=== PATIENT | female | born 1950 | race Caucasian/White ===

== ENCOUNTER 2020-08-15 15:16 | Inpatient (IN) ==
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
[2020-08-15] MEDS ORDERED: ONDANSETRON 4 MG/2 ML VIAL IV PRN ×2 (16:42→19:04)
[2020-08-15] MEDS ORDERED: HYDROmorphone 0.5 MG/0.5 ML SYRINGE IV PRN (16:42)
[2020-08-15] MEDS: 0.9 % SODIUM CHLORIDE 1,000 ML IV SCH (17:04)
[2020-08-15] MEDS ORDERED: LORazepam 2 MG/ML VIAL IV ONE (17:20)
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
[2020-08-15] MEDS ORDERED: cefTRIAXone 1 GM VIAL IM ONE (18:17)
[2020-08-15] MEDS ORDERED: LIDOCAINE HCL/PF 100 MG/5 ML SYRINGE IV ONE (18:20)
[2020-08-15] MEDS ORDERED: fentaNYL 100 MCG/2 ML VIAL IV ONE (18:20)
[2020-08-15] MEDS ORDERED: KETAMINE 100 MG/ML ML ONE (18:20)
[2020-08-15] MEDS ORDERED: MIDAZOLAM 5 MG/5 ML VIAL ONE (18:20)
[2020-08-15] MEDS ORDERED: PHENYLEPHRINE 10 MG/ML VIAL ONE (18:20)
[2020-08-15] MEDS ORDERED: ONDANSETRON 4 MG/2 ML VIAL ONE (18:20)
[2020-08-15] MEDS ORDERED: DEXAMETHASONE 10 MG/ML VIAL ONE (18:20)
[2020-08-15] MEDS ORDERED: GLYCOPYRROLATE 0.2 MG/ML VIAL IV ONE (18:20)
[2020-08-15] MEDS ORDERED: ePHEDrine 50 MG/ML AMPUL IV ONE (18:20)
[2020-08-15] MEDS ORDERED: PROPOFOL 200 MG/20 ML VIAL IV ONE (18:20)
[2020-08-15] MEDS ORDERED: cefTRIAXone 1 GM VIAL ONE (18:36)
--- NOTE | 2020-08-15 19:02 | Brief Operative Note ---
Brief Operative Note Date of procedure: 08/15/20 Pre-op diagnosis: right ureteral stone Post-op diagnosis: same Procedure: right ureteroscopy and laser lithotripsy and stent placement Grafts/Implants: Yes (6 honduran 24 cm ureteral stent ) Anesthesia: GETA Findings: right distal radio opaque ureteral stone with hydroureter and tortuous ureter Complications: none Surgeon: Sj Hodges Specimens Removed/Pathology: other (stone for analysis, urine culture ) Condition: stable Disposition: PACU
[2020-08-15] MEDS ORDERED: HYDROcodone/APAP 5/325MG TABLET PO PRN (19:04)
[2020-08-15] MEDS ORDERED: PHENAZOPYRIDINE 200 MG TABLET PO PRN (19:04)
[2020-08-15] MEDS: PIPERACILLIN SODIUM/TAZOBACTAM 3.375 GM in DEXTROSE 5% IN WATER 50 ML IV SCH (19:30)
[2020-08-15] MEDS ORDERED: METOPROLOL TARTRATE 5 MG/5 ML VIAL IV ONE ×2 (19:42→19:52)
[2020-08-15] MEDS ORDERED: MEPERIDINE 25 MG/ML SYRINGE IV PRN (19:43)
[2020-08-15] MEDS ORDERED: LACTATED RINGERS 250 ML IV PRN (19:43)
[2020-08-15] MEDS ORDERED: BENZOCAINE/MENTHOL 1 LOZENGE PO PRN (19:43)
[2020-08-15] MEDS ORDERED: NALOXONE HCL 0.4 MG/ML VIAL IV PRN (19:43)
[2020-08-15] MEDS ORDERED: FLUMAZENIL 0.1 MG/ML ML IV PRN (19:43)
[2020-08-15] MEDS ORDERED: IPRATROPIUM/ALBUTEROL 3 ML AMPUL.NEB NEB PRN (19:43)
[2020-08-15] MEDS ORDERED: fentaNYL 100 MCG/2 ML VIAL IV PRN (19:43)
[2020-08-15] MEDS ORDERED: KETOROLAC 30 MG/ML VIAL IV PRN (19:43)
[2020-08-15] MEDS ORDERED: LABETALOL 5 MG/ML ML IV PRN (19:43)
[2020-08-15] MEDS ORDERED: METHOCARBAMOL 1,000 MG/10 ML VIAL IV PRN (19:43)
[2020-08-15] MEDS ORDERED: ACETAMINOPHEN 1,000 MG/100 ML BAG IV ONE (19:43)
[2020-08-15] MEDS ORDERED: LACTATED RINGERS 1,000 ML IV SCH (19:45)
--- NOTE | 2020-08-15 20:27 | XRay Report ---
INDICATION: stent placement TECHNIQUE: 0.4 minutes fluoroscopy and 5.56 mGy exposure utilized. A right ureteral stent was placed by Dr. Hodges. Spot films were obtained IMPRESSION: Intraoperative fluoroscopy and right ureteral stent placement Interpreted and Authenticated by: Billy Carver 08/15/20
[2020-08-15] MEDS ORDERED: VANCOMYCIN 1,500 MG in 0.9 % SODIUM CHLORIDE 500 ML IV ONE (21:00)
--- NOTE | 2020-08-15 21:11 | Event Note ---
Event Note Event Note: 69 y.o. diabetic female with obstructing ureteral UVJ stone. Patient was transferred from outside hospital and was to be admitted to Hospitalist with urology on consult. Underwent ureteroscopy, laser lithotripsy and stent placement. Did well post operatively. Is somehow admitted to urology service and her med list is not updated nor able to be reconciled in the EMR. Post op check with RN and patient is now, in the last hour, becoming hypotensive. D/W both the hospitalist financial sales professional and the housekeeper cleaning cooking and she will immediately be admitted to the unit and on the hospitalist service for likely bacteremia/sepsis.
[2020-08-15] MEDS ORDERED: 0.9 % SODIUM CHLORIDE 1,000 ML IV ONE ×2 (21:15→21:30)
[2020-08-15] MEDS ORDERED: NOREPINEPHRINE BITARTRATE 4 MG/4 ML VIAL IV ONE (21:21)
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
--- NOTE | 2020-08-15 21:47 | Operative Note ---
Operative Note Operative Note: Date of procedure: 08/15/20 Pre-op diagnosis: right ureteral stone Post-op diagnosis: same Procedure: right ureteroscopy and laser lithotripsy and stent placement Grafts/Implants: Yes (6 english 24 cm ureteral stent ) Anesthesia: GETA Findings: right distal radio opaque ureteral stone with hydroureter and tortuous ureter Complications: none Surgeon: Sj Hodges Specimens Removed/Pathology: other (stone for analysis, urine culture ) Condition: stable Disposition: PACU Informed consent was obtained and preoperative antibiotics were given. Patient had been given Zosyn at the outside hospital and she was given 1 g of ceftriaxone before the procedure. Patient was taken to the operative suite and placed on the table in supine position. Adequate anesthesia was initiated. Patient was then placed in the dorsal lithotomy position. She was prepped and draped in usual sterile fashion. We began the procedure with a 21 Sammarinese cystoscope and 30 degree lens was guided into the urethra and bladder. The bladder was examined with a 30 and 70 degree lens and was seen to be within normal limits. The urothelium and urine was without signs of obvious infection. The right ureteral orifice was identified and seemed to be edematous from the distal stone. The cystoscope was removed and the semirigid ureteroscope was entered into the urethra and bladder and with the semirigid ureteroscope we are able to utilize the wire and enter into the distal ureter. Right at the ureterovesical junction was a 6 mm ureteral calculus. Such was easily rolled back into the distal ureter. The laser fiber was employed and laser lithotripsy of the stone was undertaken and was easily and quickly fragmented into small pieces. The stone basket was entered and the larger 3 pieces were removed and sent off for analysis. The ureter was seen to be dilated and tortuous. Urine was collected for culture. The wire was seen to transverse up to the renal pelvis. The usual Salinger fashion and 6 Sammarinese 24 centimeters double-J ureteral stent was placed and seemed to coil adequately in the renal pelvis under fluoroscopy and in the bladder under direct vision. Good drainage of urine down the stent. The bladder was drained. Patient tolerated the procedure well went to recovery room in excellent condition. In recovery room, the patient was somnolent but hemodynamically stable and afebrile.
[2020-08-15] MEDS ORDERED: ALPRAZolam 0.25 MG TABLET PO PRN (21:57)
[2020-08-15] MEDS ORDERED: CETIRIZINE 10 MG TABLET PO PRN (21:57)
[2020-08-15] MEDS ORDERED: PRAVASTATIN 20 MG TABLET PO SCH (22:00)
[2020-08-15 22:11] LABS: Basophils # (Auto) 0.03 K/mcL (0.00-0.20); Basophils % (Auto) 0.3 % (0.0-2.0); Eosinophils # (Auto) 0 K/mcL (0.00-0.70); Eosinophils % (Auto) 0 % (0.0-7.0); Hematocrit 35.4 % (36.0-48.0); Hemoglobin 11.4 g/dL (12.0-15.0); Lymphocytes % (Auto) 7.6 % (15.0-49.0); Mean Cell Volume 92.4 fL (80.0-100.0); Mean Corpuscular HGB Conc 32.2 g/dL (31.0-36.0); Mean Platelet Volume 10.8 fL (7.4-10.4); Monocytes % (Auto) 3.4 % (1.0-12.0); Neutrophils % (Auto) 88.7 % (38.0-78.0); Platelet Count 233 K/mcL (140-440); RBC 3.83 M/mcL (4.00-5.20); WBC 11.8 K/mcL (4.5-11.0)
[2020-08-15 22:25] LABS: ALT/SGPT 15 U/L (<40); AST/SGOT 21 U/L (<32); Albumin 3.3 gm/dL (3.2-5.2); Albumin/Globulin Ratio 1.4 (1.0-2.3); Alkaline Phosphatase 67 U/L (39-117); Bilirubin,Direct < 0.2 mg/dL (<0.3); Bilirubin,Total 0.2 mg/dL (0.1-1.0); Blood Urea Nitrogen 14 mg/dL (8-23); Calcium 8.6 mg/dL (8.6-10.4); Carbon Dioxide 25 mmol/L (22-30); Chloride 104 mmol/L (96-108); Globulin 2.4 gm/dL (2.2-3.7); Glomerular Filtration Rate 52; Glucose 139 mg/dL (70-105); Lactate Dehydrogenase 139 U/L (135-225); Phosphorous 3.7 mg/dL (2.5-4.5); Triglycerides 163 mg/dL (<150); Uric Acid 5.8 mg/dL (2.5-8.0)
[2020-08-16] MEDS: ELECTROLYTE-R SOLUTION 1,000 ML IV SCH ×2 (00:31→11:00)
[2020-08-16] MEDS: 0.9 % SODIUM CHLORIDE 10 ML SYRINGE IV SCH ×4 (00:33→22:46)
[2020-08-16] MEDS: 0.9 % SODIUM CHLORIDE 1,000 ML IV SCH ×4 (00:47→21:33)
[2020-08-16] MEDS: PIPERACILLIN SODIUM/TAZOBACTAM 3.375 GM in DEXTROSE 5% IN WATER 50 ML IV SCH ×3 (05:45→21:33)
[2020-08-16 06:50] LABS: Basophils # (Auto) 0.01 K/mcL (0.00-0.20); Basophils % (Auto) 0.1 % (0.0-2.0); Eosinophils # (Auto) 0 K/mcL (0.00-0.70); Eosinophils % (Auto) 0 % (0.0-7.0); Hematocrit 33.2 % (36.0-48.0); Hemoglobin 10.5 g/dL (12.0-15.0); Lymphocytes # (Auto) 1.31 K/mcL (1.50-4.80); Lymphocytes % (Auto) 15.7 % (15.0-49.0); Mean Cell Volume 93.5 fL (80.0-100.0); Mean Corpuscular HGB Conc 31.6 g/dL (31.0-36.0); Mean Platelet Volume 10.9 fL (7.4-10.4); Monocytes # (Auto) 0.24 K/mcL (0.10-0.90); Monocytes % (Auto) 2.9 % (1.0-12.0); Neutrophils % (Auto) 81.3 % (38.0-78.0); Platelet Count 223 K/mcL (140-440); RBC 3.55 M/mcL (4.00-5.20); Red Cell Distribution Width 12.1 % (11.5-14.5); WBC 8.4 K/mcL (4.5-11.0)
[2020-08-16 07:43] LABS: ALT/SGPT 14 U/L (<40); AST/SGOT 20 U/L (<32); Albumin/Globulin Ratio 1.3 (1.0-2.3); Alkaline Phosphatase 63 U/L (39-117); Bilirubin,Direct < 0.2 mg/dL (<0.3); Bilirubin,Total 0.2 mg/dL (0.1-1.0); Blood Urea Nitrogen 13 mg/dL (8-23); Calcium 8.6 mg/dL (8.6-10.4); Carbon Dioxide 23 mmol/L (22-30); Chloride 115 mmol/L (96-108); Globulin 2.4 gm/dL (2.2-3.7); Glomerular Filtration Rate 66; Glucose 128 mg/dL (70-105); Lactate Dehydrogenase 125 U/L (135-225); Phosphorous 4.3 mg/dL (2.5-4.5); Triglycerides 83 mg/dL (<150); Uric Acid 4.7 mg/dL (2.5-8.0)
[2020-08-16] MEDS ORDERED: FAMOTIDINE 20 MG TABLET PO SCH (09:00)
[2020-08-16] MEDS ORDERED: LIRAGLUTIDE SUB-Q SCH (09:00)
[2020-08-16] MEDS ORDERED: INSULIN GLARGINE, HUMAN 1 UNIT/0.01 ML SQ SCH ×3 (09:00→21:00)
[2020-08-16] MEDS ORDERED: busPIRone 5 MG TABLET PO SCH (09:00)
[2020-08-16] MEDS ORDERED: CLOPIDOGREL 75 MG TABLET PO SCH (09:00)
[2020-08-16] MEDS ORDERED: PARoxetine 20 MG TABLET PO SCH (09:00)
[2020-08-16] MEDS ORDERED: ASPIRIN 81 MG TAB.CHEW PO SCH (09:00)
[2020-08-16] MEDS ORDERED: VANCOMYCIN PER PHARMACY IV SCH ×2 (10:15→13:33)
[2020-08-16] MEDS ORDERED: MAGNESIUM SULFATE 2 GM/50 ML BAG IV ONE (11:00)
[2020-08-16] MEDS ORDERED: VANCOMYCIN 1,000 MG in 0.9 % SODIUM CHLORIDE 250 ML IV SCH (11:00)
[2020-08-16] MEDS ORDERED: INSULIN LISPRO 1 UNIT/0.01 ML UNIT SQ SCH (11:30)
--- NOTE | 2020-08-16 12:08 | Internal Med Progress Note ---
SUBJECTIVE Subjective Patient information: Note initiated : 08/16/20 at 12:08 pm Service Date, if different from initiated Date: [] Patient: Chinyere Parkinson 69 y/o F admitted on 08/15/20 for Flank Pain . Chief Complaint: Ms. Parkinson is a 69-year-old with a history of CVA 3 weeks ago/anxiety disorder /DM type II/HTN who was transferred from [place] with symptoms of acute onset right lower quadrant pain secondary to right UVJ stone/obstructive uropathy. Due to unavailability of urology at [facility] the patient was transferred to [facility] and was evaluated by urology Dr. Hodges. She underwent ureteroscopy/laser lithotripsy and stenting this evening. Postoperatively patient became febrile at 102 along with systolics dropping to 70s indicating rapidly developing sepsis with circulatory collapse. Subsequently hospitalist service was consulted for management of shock likely from genitourinary source. Patient was seen in the immediate postoperative phase. Appears lethargic. Stat 2 L of boluses ordered. IV line secured. Stat lactate/CBC/IP/UA/blood cultures drawn. Patient emergently transferred to ICU and started on vasopressors/Zosyn/vancomycin. Patient is able to answer some of the questions. She says she has had a rough few weeks with a recent CVA for which she was admitted to centers of 3 weeks ago and currently on Plavix. She also has been going through a divorce and has been under a lot of stress. She denies associated fever, bloody urine, diarrhea, dysuria, chest pain 08/16-patient clinically improved. Map at goal. White count stable. Afebrile. Transition to medical floor. Continue antibiotic coverage. No endorgan dysfunction. Mentation improved, white count down to 8.4. Cultures negative so far. Sodium 146. DC IV fluids. Magnesium 1.5 on replacement. Constitutional Vitals: Vital Signs Temp Pulse Resp BP Pulse Ox 98.4 F 75 16 140/66 98 08/16/20 12:01 08/16/20 12:08/16/20 12:08/16/20 12:08/16/20 12:01 Period Temp Pulse Resp BP Sys/Teran Pulse Ox Last 24 Hr 97.7 F-99.4 F 75-124 11-23 78-159/44-108 87-100 Intake and Output 08/15/20 08/16/20 08/16/20 21:59 05:59 13:59 Intake Total 1572014 Output Total 20 1525 Balance 3227 027 7216 Weight 70.987 kg Alert oriented no anxiety Nonlabored breathing Nondistended abdomen No telemetry events Intake & Output: Intake & Output 08/15/20 08/16/20 08/16/20 21:59 05:59 13:59 Intake Total 1572014 Output Total 20 1525 Balance 1070 949 6061 Weight 70.987 kg Intake: IV 72 1814 2049 Sodium Chloride 0.9% 1,000 ml @ 72 1265 2000 Wide Open IV BOLUS ONE Rx#: [id number] Zosyn 3.375 gm In Dextrose 5% 50 50 in Water 50 ml @ 100 mls/hr IV Q8H [facility] Rx#:[id number] Vancomycin 1,500 mg In Sodium 500 Chloride 0.9% 500 ml @ 333.3 mls/hr IV ONCE ONE Rx#: [id number] Oral 200 IV - Manual Only 1500 Output: Urine Catheter Amount 1525 Estimated Blood Loss 20 Other: Urine Appearance Clear Clear Hematuria Hematuria Uretheral (Zavala) Hematuria Hematuria Urine Color Blood Tinged Blood Tinged Uretheral (Zavala) Pale Pale Urine Odor Normal # Voids 1 OBJ DATA Labs CBC & Chem 7: 08/16/20 05:42 08/16/20 05:42 Labs: Abnormal Lab Results 08/16/20 08/16/20 08/15/20 05:42 05:42 21:24 WBC RBC 3.55 L Hgb 10.5 L Hct 33.2 L MPV 10.9 H Neut % (Auto) 81.3 H Lymph % (Auto) Lymph # (Auto) 1.31 L Absolute Neutrophils Sodium 146 H Chloride 115 H Glucose 128 H 139 H Magnesium 1.5 L 1.5 L Lactate Dehydrogenase 125 L Total Protein 5.4 L 5.7 L Albumin 3.0 L Triglycerides 163 H 08/15/20 21:24 WBC 11.8 H RBC 3.83 L Hgb 11.4 L Hct 35.4 L MPV 10.8 H Neut % (Auto) 88.7 H Lymph % (Auto) 7.6 L Lymph # (Auto) 0.90 L Absolute Neutrophils 10.50 H Sodium Chloride Glucose Magnesium Lactate Dehydrogenase Total Protein Albumin Triglycerides Meds: Medications Hydrocodone Bitart/Acetaminophen ([place] 5/325mg) 0 tab PO Q4HP PRN; Protocol PRN Reason: Per Pain Protocol Alprazolam (Xanax) 0.25 - 0.5 mg PO HSP PRN PRN Reason: anxiety Aspirin (Aspirin) 81 mg PO QDAY [facility] Last Admin: 08/16/20 11:27 Dose: 81 mg Documented by: Buspirone HCl (Buspar) 10 mg PO BID [facility] Last Admin: 08/16/20 11:28 Dose: 10 mg Documented by: Cetirizine HCl (Zyrtec) 10 mg PO DAILYP PRN PRN Reason: allergy symptoms Last Admin: 08/16/20 11:28 Dose: 10 mg Documented by: Clopidogrel Bisulfate (Plavix) 75 mg PO QDAY [facility] Last Admin: 08/16/20 11:28 Dose: 75 mg Documented by: Diagnostic Test (Pha) (Accu-Chek) 1 each FS ACHS [facility] Last Admin: 08/16/20 11:26 Dose: 1 each Documented by: Famotidine (Pepcid) 40 mg PO QDAY [facility] Last Admin: 08/16/20 11:29 Dose: 40 mg Documented by: Hydromorphone HCl (Dilaudid) 0.5 mg IV Q15MIN PRN; Protocol PRN Reason: Per Pain Protocol Last Admin: 08/15/20 17:04 Dose: 0.5 mg Documented by: Sodium Chloride (Sodium Chloride 0.9%) 1,000 mls @ 150 mls/hr IV .Q6H40M [facility] Last Admin: 08/16/20 05:44 Dose: 150 mls/hr Documented by: Piperacillin Sod/Tazobactam (Sod 3.375 gm/ Dextrose) 50 mls @ 100 mls/hr IV Q8H [facility]; Protocol Last Infusion: 08/16/20 07:04 Dose: Infused Documented by: Parenteral Electrolytes (Normosol-R) 1,000 mls @ 100 mls/hr IV .Q10H [facility] Last Admin: 08/16/20 11:00 Dose: Not Given Documented by: Magnesium Sulfate (Magnesium Sulfate) 2 gm in 50 mls @ 25 mls/hr IV ONCE ONE Stop: 08/16/20 12:59 Last Admin: 08/16/20 11:03 Dose: 25 mls/hr Documented by: Vancomycin HCl 1,000 mg/ (Sodium Chloride) 250 mls @ 250 mls/hr IV Q12H [facility] Last Admin: 08/16/20 11:03 Dose: 250 mls/hr Documented by: Insulin Glargine (Lantus) 86 unit SQ HS [facility] Insulin Human Lispro (Humalog) 0 unit SQ ACHS [facility]; Protocol Last Admin: 08/16/20 11:55 Dose: Not Given Documented by: Ondansetron HCl (Zofran) 4 mg IV Q4-6HP PRN PRN Reason: Nausea And Vomiting Last Admin: 08/15/20 17:04 Dose: 4 mg Documented by: Ondansetron HCl (Zofran) 4 mg IV Q6HP PRN; Protocol PRN Reason: Nausea And Vomiting Paroxetine HCl (Paxil) 30 mg PO QDAY [facility] Last Admin: 08/16/20 11:27 Dose: 30 mg Documented by: Liraglutide [Victoza (] 1.8mg/Dose) 1 dose SUB-Q DAILY [facility] Last Admin: 08/16/20 11:09 Dose: Not Given Documented by: Phenazopyridine HCl (Pyridium) 200 mg PO TIDP PRN PRN Reason: PAINFUL URINATION Simvastatin (Zocor) 10 mg PO HS [facility] Sodium Chloride (Saline Flush) 5 ml IV Q8 [facility] Last Admin: 08/16/20 07:03 Dose: Not Given Documented by: Vancomycin HCl (Vancomycin Per Pharmacy) 1 order IV UD NATE A/P Narrative A/P Narrative: * Septic shock likely source. Clinically resolved. Now map at goal. Off pressors. Improved endorgan dysfunction. White count downtrending. Transfer to medical floor continue antibiotic coverage * Obstructive uropathy-status post laser lithotripsy/cystoscopy/stenting procedure by urology. Postop care per urology * Hypernatremia at 146 secondary to crystalloids. Start free water replacement * Hypoxic respiratory failure on 2 L oxygen. Likely secondary to hypoventilation from procedural sedation. Continue weaning oxygen as tolerated * DM type II continue basal prandial insulin * Recent ischemic CVA with right sided weakness. Continue Plavix/statin * History of hypertension hold antihypertensives in light of shock * Anxiety disorder continue benzodiazepine, restart home medication once patient stable * Full code * Prophylaxis Heparin Plan * Transfer to medical floor * Continue antibiotics * Discontinue crystalloids and start free water replacement * Restart home medications for pre-existing medical conditions * PT OT/nutrition support Critical care time spent in excess of 35 minutes on management of septic shock and stabilization of hemodynamics Time Spent With Patient Time: Total time spent is greater than 50% in coordination of care (as documented) at patient's floor/unit and/or counseling patient: QUALITY Stroke Onset of Symptoms Date: 07/17/20 Onset of Symptoms Time: 20:00 Symptom Onset Unknown: No VTE Deep Vein Thrombosis/Pulmonary Embolism Present on Admission: No
[2020-08-16] MEDS ORDERED: HYDROcodone/APAP 5/325MG TABLET PO PRN (13:33)
[2020-08-16] MEDS ORDERED: PHENAZOPYRIDINE 200 MG TABLET PO PRN (13:33)
[2020-08-16] MEDS ORDERED: CETIRIZINE 10 MG TABLET PO PRN (13:33)
[2020-08-16] MEDS ORDERED: ONDANSETRON 4 MG/2 ML VIAL IV PRN ×2 (13:33)
[2020-08-16] MEDS: INSULIN LISPRO 1 UNIT/0.01 ML UNIT SQ SCH ×2 (17:40→21:35)
[2020-08-16] MEDS ORDERED: ALPRAZolam 0.25 MG TABLET PO PRN (21:00)
[2020-08-16] MEDS ORDERED: SIMVASTATIN 10 MG TABLET PO SCH ×2 (21:00)
[2020-08-16] MEDS ORDERED: TRAVOPROST OPHTH DROPS BOTTLE 2.5ML OU SCH ×2 (21:00)
[2020-08-16] MEDS: VANCOMYCIN 1,000 MG in 0.9 % SODIUM CHLORIDE 250 ML IV SCH (21:33)
[2020-08-16] MEDS: busPIRone 5 MG TABLET PO SCH (21:35)
[2020-08-17] MEDS: 0.9 % SODIUM CHLORIDE 10 ML SYRINGE IV SCH (04:53)
[2020-08-17] MEDS: PIPERACILLIN SODIUM/TAZOBACTAM 3.375 GM in DEXTROSE 5% IN WATER 50 ML IV SCH (05:08)
[2020-08-17] MEDS: INSULIN LISPRO 1 UNIT/0.01 ML UNIT SQ SCH ×2 (07:07→11:22)
[2020-08-17] MEDS: busPIRone 5 MG TABLET PO SCH (08:22)
[2020-08-17] MEDS ORDERED: FAMOTIDINE 20 MG TABLET PO SCH (09:00)
[2020-08-17] MEDS ORDERED: ASPIRIN 81 MG TAB.CHEW PO SCH (09:00)
[2020-08-17] MEDS ORDERED: PARoxetine 20 MG TABLET PO SCH (09:00)
[2020-08-17] MEDS ORDERED: PATIENTS OWN MEDICATION 1 DOSE MISCELL SUB-Q SCH (09:00)
[2020-08-17] MEDS ORDERED: CLOPIDOGREL 75 MG TABLET PO SCH (09:00)
[2020-08-17] MEDS: VANCOMYCIN 1,000 MG in 0.9 % SODIUM CHLORIDE 250 ML IV SCH (10:30)
--- NOTE | 2020-08-17 12:22 | Discharge Summary ---
Discharge Provider Provider Patient information: Note initiated : 08/17/20 at 12:19 pm Service Date, if different from initiated Date: [] Patient: Chinyere Parkinson 69 y/o F admitted on 08/15/20 for Flank Pain . Discharge diagnosis * Septic shock likely source. Clinically resolved. Hemodynamic stable. Improved endorgan dysfunction. Discharging home. Continue additional 5 days oral antibiotics. * Obstructive uropathy-status post laser lithotripsy/cystoscopy/stenting procedure by urology. Follow-up with urology in 1 week * Hypernatremia at 146 secondary to crystalloids. Resolved with free water replacement. * Hypoxic respiratory failure on 2 L oxygen. Resolved now on room air * DM type II well-controlled on basal prandial insulin * Recent ischemic CVA with right sided weakness. Managed on home dose Plavix/statin * History of hypertension resume home antihypertensives * Anxiety disorder continue benzodiazepine, continue home medications Brief hospital course Ms. Parkinson is a 69-year-old with a history of CVA 3 weeks ago/anxiety disorder/DM type II/HTN who was transferred from [place] with symptoms of acute onset right lower quadrant pain secondary to right UVJ stone/obstructive uropathy. Due to unavailability of urology at [facility] the patient was transferred to [facility] and was evaluated by urology Dr. Hodges. She underwent ureteroscopy/laser lithotripsy and stenting this evening. Postoperatively patient became febrile at 102 along with systolics dropping to 70s indicating rapidly developing sepsis with circulatory collapse. Subsequently hospitalist service was consulted for management of shock likely from genitourinary source. Patient was seen in the immediate postoperative phase. Appears lethargic. Stat 2 L of boluses ordered. IV line secured. Stat lactate/CBC/IP/UA/blood cultures drawn. Patient emergently transferred to ICU and started on vasopressors/Zosyn/vancomycin. Patient is able to answer some of the questions. She says she has had a rough few weeks with a recent CVA for which she was admitted to centers of 3 weeks ago and currently on Plavix. She also has been going through a divorce and has been under a lot of stress. She denies associated fever, bloody urine, diarrhea, dysuria, chest pain 08/16-patient clinically improved. Map at goal. White count stable. Afebrile. Transition to medical floor. Continue antibiotic coverage. No endorgan dysfunction. Mentation improved, white count down to 8.4. Cultures negative so far. Sodium 146. DC IV fluids. Magnesium 1.5 on replacement. 08/17- patient discharging home on additional 5 days oral antibiotic. Recommended follow-up with urology in 7 days. Discharge instructions below Date of admission: 08/15/20 21:15 Discharge date: 08/17/20 Primary care physician: Miranda Mccain Consults: 08/15/20 17:10 Consult to Physician [CONS] Stat Comment: Consulting Provider: Sj Hodges Reason For Exam: Physician to Consult Discharge Meds Discharge Medications Home Medications hjrbjpuu-tqn-vlbn-FA-lutein 1 each PO QAM 12/11/16 [History Confirmed 08/02/20 Last Taken 12/11/16] hydrochlorothiazide 25 mg tablet 25 mg PO QAM #90 tab 10/01/19 [Rx Confirmed 08/15/20 Last Taken 08/14/20 09:00] liraglutide 0.6 mg/0.1 mL (18 mg/3 mL) subcutaneous pen injector See Rx Instructions .ROUTE .COMPLEX #9 milliliter 11/02/19 [Rx Confirmed 08/15/20 Last Taken 08/14/20 09:00] lisinopril 10 mg tablet 10 mg PO QDAY #90 tab 12/29/19 [Rx Confirmed 08/15/20 Last Taken 08/14/20 09:00] blood sugar diagnostic See Rx Instructions .ROUTE .COMPLEX #100 each 03/25/20 [Rx Confirmed 08/15/20 Last Taken Unknown] insulin aspart (niacinamide) See Rx Instructions .ROUTE .COMPLEX #15 ml 04/27/20 [Rx Confirmed 08/02/20 Last Taken Unknown] pen needle, diabetic 32 gauge x 5/32" See Rx Instructions .ROUTE .COMPLEX #100 each 04/27/20 [Rx Confirmed 08/02/20 Last Taken Unknown] famotidine 40 mg tablet 40 mg PO QDAY #90 tab 05/30/20 [Rx Confirmed 08/15/20 Last Taken Unknown] ondansetron 4 mg disintegrating tablet 4 mg PO Q8H PRN #10 tab 06/08/20 [Rx Confirmed 08/02/20 Last Taken Unknown] amino-max 1 tab PO QDAY 07/06/20 [History Confirmed 08/02/20 Last Taken Unknown] ascorbate calcium (vitamin C) 500 mg tablet 500 mg PO QDAY 07/06/20 [History Confirmed 08/02/20 Last Taken Unknown] aspirin 81 mg tablet,delayed release 81 mg PO QDAY 07/06/20 [History Confirmed 08/15/20 Last Taken 08/14/20 09:00] cetirizine 10 mg tablet 10 mg PO QDAY PRN tab 07/06/20 [History Confirmed 08/15/20 Last Taken Unknown] cranberry extract 650 mg capsule 650 mg PO QDAY cap 07/06/20 [History Confirmed 08/02/20 Last Taken Unknown] insulin glargine U-300 conc 300 unit/mL (1.5 mL) subcutaneous pen 86 unit SUB-Q QDAY #9 ml 07/06/20 [Rx Confirmed 08/15/20 Last Taken 08/14/20 09:00] pravastatin 20 mg tablet See Rx Instructions .ROUTE .COMPLEX #45 tab 07/06/20 [Rx Confirmed 08/15/20 Last Taken 08/14/20 21:00] vitamin E (dl, acetate) 400 unit capsule 400 unit PO QDAY cap 07/06/20 [History Confirmed 08/02/20 Last Taken Unknown] zinc 50 mg tablet 25 mg PO QDAY tab 07/06/20 [History Confirmed 08/02/20 Last Taken Unknown] acyclovir 400 mg tablet 400 mg PO BID #180 tab 07/11/20 [Rx Confirmed 08/02/20 Last Taken Unknown] albuterol sulfate 90 mcg/actuation aerosol inhaler 2 puff INHALATION QID PRN #18 g 07/11/20 [Rx Confirmed 08/02/20 Last Taken Unknown] buspirone 10 mg tablet 10 mg PO BID #60 tab 07/18/20 [Rx Confirmed 08/15/20 Last Taken 08/14/20 21:00] clopidogrel 75 mg tablet 75 mg PO QDAY #180 tab 07/18/20 [Rx Confirmed 08/15/20 Last Taken Unknown] paroxetine HCl 20 mg tablet 30 mg PO QDAY #145 tab 07/18/20 [Rx Confirmed 08/15/20 Last Taken 08/14/20 09:00] cholecalciferol (vitamin D3) 1,250 mcg (50,000 unit) capsule 50,000 unit PO QWEEK #12 cap 07/22/20 [Rx Confirmed 08/02/20 Last Taken Unknown] nitrofurantoin monohydrate/macrocrystals 100 mg capsule 100 mg PO BID #20 cap 08/02/20 [Rx Confirmed 08/02/20 Last Taken Unknown] alprazolam 0.25 mg tablet 0.25 - 0.5 mg PO QHS PRN #60 tab 08/08/20 [Rx Confirmed 08/15/20 Last Taken Unknown] travoprost 1 drp OPHTHALMIC (EYE) HS 08/16/20 [History Confirmed 08/16/20 Last Taken Unknown] cefdinir 300 mg PO BID #10 cap 08/17/20 [Rx Last Taken Unknown] COURSE Hospital Course Hospital course: . Discharge diagnosis: . Time Spent with Patient Time attestation: Total time spent providing and/or coordinating discharge services: EXAM Constitutional Vitals: Temp Pulse Resp BP Pulse Ox 98.4 F 95 H 18 135/70 92 08/17/20 07:00 08/17/20 07:00 08/17/20 07:00 08/17/20 07:00 08/17/20 07:00 Discharge Data Data Completed and Pending Labs on day of discharge: Labs from last 24 hours 08/17/20 07:59 Vancomycin Trough 14.2 Preliminary micro results at discharge 08/15/20 21:25 Blood Culture - Preliminary Blood 08/15/20 21:24 Blood Culture - Preliminary Blood Discharge Plan Patient/Caregiver Discharge Instructions Activity: increase activity as tolerated Diet: Consistent Carbohydrate Instructions: Kidney Stones (ED) Activity Restrictions/Additional Instructions: Follow-up with urology in 7 days. Continue antibiotic coverage physician 5 days Return to ER if worsening abdominal pain fever chills Prescriptions: New cefdinir 300 MG capsule 300 mg PO BID Qty: 10 RF: 0 Continued insulin aspart (niacinamide) [Fiasp FlexTouch U-100 Insulin] 100 unit/mL (3 mL) insulin pen RF: 0 famotidine [Pepcid] 40 mg tablet 40 mg PO QDAY Qty: 90 RF: 3 aspirin [Adult Low Dose Aspirin] 81 mg tablet,delayed release (DR/EC) 81 mg PO QDAY RF: 0 cetirizine 10 mg tablet 10 mg PO QDAY PRN (Reason: allergy symptoms) RF: 0 vitamin E (dl, acetate) 400 unit capsule 400 unit PO QDAY RF: 0 cranberry extract 650 mg capsule 650 mg PO QDAY RF: 0 ascorbate calcium (vitamin C) 500 mg tablet 500 mg PO QDAY RF: 0 zinc 50 mg tablet 25 mg PO QDAY RF: 0 amino-max 1 tab PO QDAY RF: 0 pravastatin 20 mg tablet See Rx Instructions .ROUTE .COMPLEX Qty: 45 RF: 2 Toujeo SoloStar U-300 Insulin 300 unit/mL (1.5 mL) insulin pen 86 unit SUB-Q QDAY Qty: 9 RF: 6 buspirone 10 mg tablet 10 mg PO BID Qty: 60 RF: 3 paroxetine HCl [Paxil] 20 mg tablet 30 mg PO QDAY Qty: 145 RF: 0 clopidogrel 75 mg tablet 75 mg PO QDAY Qty: 180 RF: 2 nitrofurantoin monohyd/m-cryst [Macrobid] 100 mg capsule 100 mg PO BID Qty: 20 RF: 0 insulin glargine U-300 conc [Toujeo SoloStar U-300 Insulin] 300 unit/mL (1.5 mL) insulin pen RF: 0 hydrochlorothiazide 25 mg tablet 25 mg PO QAM Qty: 90 RF: 3 liraglutide [Victoza 3-Gio] 0.6 mg/0.1 mL (18 mg/3 mL) pen injector See Rx Instructions .ROUTE .COMPLEX Qty: 9 RF: 6 lisinopril 10 mg tablet 10 mg PO QDAY Qty: 90 RF: 3 blood sugar diagnostic [FreeStyle Lite Strips] Strip See Rx Instructions .ROUTE .COMPLEX Qty: 100 RF: 5 pen needle, diabetic [BD Ultra-Fine Elsi Pen Needle] 32 gauge x 5/32" needle See Rx Instructions .ROUTE .COMPLEX Qty: 100 RF: 6 insulin aspart (niacinamide) [Fiasp FlexTouch U-100 Insulin] 100 unit/mL (3 mL) insulin pen See Rx Instructions .ROUTE .COMPLEX Qty: 15 RF: 3 acyclovir 400 mg tablet 400 mg PO BID Qty: 180 RF: 1 albuterol sulfate [ProAir HFA] 90 mcg/actuation HFA aerosol inhaler 2 puff INHALATION QID PRN (Reason: shortness of breath or wheezing) Qty: 18 RF: 3 cholecalciferol (vitamin D3) 1,250 mcg (50,000 unit) capsule 50,000 unit PO QWEEK Qty: 12 RF: 0 alprazolam 0.25 mg tablet 0.25 - 0.5 mg PO QHS PRN (Reason: anxiety) Qty: 60 RF: 0 ondansetron 4 mg tablet,disintegrating 4 mg PO Q8H PRN (Reason: nausea and vomiting) Qty: 10 RF: 0 yubklcuf-amm-itgk-FA-lutein 1 EACH tablet 1 each PO QAM RF: 0 travoprost 0.004 % Drops 1 drp OPHTHALMIC (EYE) HS RF: 0 Follow Up Plan Follow up with: Sj Hodges MD [Physician] - Miranda Mccain ARNP [Primary Care Provider] - Patient Disposition: Home, Self-Care Prognosis: Fair Rehab Potential: Fair I certify that the patient requires SNF services: No Overall status at discharge: patient is progressing back to baseline Discharge Orders: Discharge Order (Routine); Ordered 08/17/20 Ordered By: Rebel NIEVES VTE Deep Vein Thrombosis/Pulmonary Embolism Present on Admission: No
--- NOTE | 2020-08-18 12:48 | Surgical Pathology Report ---
Histology Microscopic Diagnosis Specimen A- MINERAL MATERIAL, KIDNEY, EXTRACTION: -- CALCULI (GROSS DIAGNOSIS), SUBMITTED FOR CHEMICAL ANALYSIS. (ACP:sln) Clinical History Right flank pain. Gross Description Received without fixative labeled with the patient information and designated as kidney stones, are three black-brown stone fragments 0.3 cm each. No sections taken, gross only. The specimen will be submitted for chemical analysis. (KGW:sln) Electronically Signed Tristen Vela MD, FCAP Electronically Signed 08/18/2020 12:47 PM
[2020-08-25 11:37] LABS: Calculus Weight 0.019 g; Specimen Source NOT GIVEN
== END 2020-08-17 14:30 | disposition home or self-care (01) | DRG 659 ==
LOC: ED 15:16 → SUR 17:34 → MEDSUR 20:05 → ICU 21:15 → MEDSUR 08-16 15:50
PROVIDERS: ADMIT Internal Medicine; ATTEND Internal Medicine

== ENCOUNTER 2025-02-18 18:51 | Inpatient (IN) ==
[2025-02-18] MEDS: ACETAMINOPHEN 325 MG TABLET PO ONE (19:31)
[2025-02-18] MEDS: DIAZEPAM 10 MG/2 ML SYRINGE IV ONE (20:02)
[2025-02-18 20:07] LABS: Basophils # (Auto) 0.02 K/mcL (0.00-0.30); Basophils % (Auto) 0.1 % (0.0-2.0); Eosinophils # (Auto) 0.06 K/mcL (0.00-0.70); Eosinophils % (Auto) 0.4 % (0.0-7.0); Hematocrit 37.3 % (34.1-44.9); Hemoglobin 12.1 g/dL (11.2-15.7); Lymphocytes # (Auto) 2.65 K/mcL (1.50-4.80); Lymphocytes % (Auto) 19.8 % (15.5-49.0); Mean Cell Volume 89.9 fL (80.0-100.0); Mean Corpuscular HGB Conc 32.4 g/dL (31.0-36.0); Neutrophils % (Auto) 73.5 % (38.0-78.0); Platelet Count 212 K/mcL (140-440); RBC 4.15 M/mcL (3.59-5.38); Red Cell Distribution Width 12.6 % (11.5-14.5); WBC 13.4 K/mcL (4.5-11.0)
[2025-02-18 20:14] LABS: Prothrombin Time 13.5 sec (11.9-14.5)
[2025-02-18 20:19] LABS: ALT/SGPT 13 U/L (<40); AST/SGOT 18 U/L (<32); Albumin 3.8 gm/dL (3.2-5.2); Albumin/Globulin Ratio 1.4 (1.0-2.3); Alkaline Phosphatase 62 U/L (39-117); Bilirubin,Total 0.4 mg/dL (0.1-1.0); Blood Urea Nitrogen 22 mg/dL (8-23); Calcium 9.9 mg/dL (8.6-10.4); Carbon Dioxide 23 mmol/L (22-30); Chloride 104 mmol/L (96-108); Globulin 2.7 gm/dL (2.2-3.7); Glomerular Filtration Rate 56; Glucose 181 mg/dL (70-105); Potassium 4.5 mmol/L (3.3-5.1); Sodium 140 mmol/L (133-145)
[2025-02-18] MEDS ORDERED: OLANZapine 5 MG TABLET PO PRN (21:20)
[2025-02-18] MEDS ORDERED: POTASSIUM CHLORIDE 20 MEQ TABLET PO PRN ×2 (21:20)
[2025-02-18] MEDS ORDERED: ONDANSETRON 4 MG/2 ML VIAL IV PRN (21:20)
[2025-02-18] MEDS ORDERED: POTASSIUM CHLORIDE 40 MEQ in DEXTROSE 5% IN WATER 500 ML IV PRN (21:20)
[2025-02-18] MEDS ORDERED: POLYETHYLENE GLYCOL 3350 17 GM PACKET PO PRN (21:20)
[2025-02-18] MEDS ORDERED: DEXTROSE 31 GM ORAL.SUSP PO PRN (21:20)
[2025-02-18] MEDS ORDERED: MAGNESIUM SULFATE 2 GM/50 ML BAG IV PRN (21:20)
[2025-02-18] MEDS ORDERED: DEXTROSE 50% 50 ML VIAL IV PRN (21:20)
[2025-02-18] MEDS ORDERED: METOCLOPRAMIDE 10 MG/2 ML VIAL IV PRN (21:20)
[2025-02-18] MEDS ORDERED: SENNOSIDES 1 TABLET PO PRN (21:20)
[2025-02-18] MEDS ORDERED: ACETAMINOPHEN 325 MG TABLET PO PRN (21:20)
[2025-02-18] MEDS ORDERED: IPRATROPIUM/ALBUTEROL 3 ML AMPUL.NEB NEB PRN (21:20)
[2025-02-18] MEDS: morphine 4 MG/ML VIAL IV PRN (21:24)
[2025-02-18] MEDS: 0.9 % SODIUM CHLORIDE 1,000 ML IV SCH (21:27)
[2025-02-18] MEDS: morphine 4 MG/ML VIAL ONE (22:09)
[2025-02-18] MEDS: 0.9 % SODIUM CHLORIDE 10 ML SYRINGE IV SCH (22:10)
[2025-02-18] MEDS: DOCUSATE SODIUM 100 MG CAPSULE PO SCH (22:39)
[2025-02-18] MEDS: INSULIN LISPRO 1 UNIT/0.01 ML UNIT SQ SCH (22:39)
[2025-02-18] MEDS: ACETAMINOPHEN 650 MG/65 ML BAG IV SCH (22:58)
[2025-02-18] MEDS: INSULIN LISPRO 1 UNIT/0.01 ML UNIT SQ ONE (22:59)
[2025-02-18] MEDS: ACETAMINOPHEN 1,000 MG/100 ML BAG IV ONE (23:00)
[2025-02-19] MEDS: ACETAMINOPHEN 1,000 MG/100 ML BAG IV ONE (05:13)
[2025-02-19] MEDS: morphine 4 MG/ML VIAL IV PRN (05:31)
[2025-02-19] MEDS: morphine 4 MG/ML VIAL ONE (05:43)
[2025-02-19 06:31] LABS: Basophils # (Auto) 0.03 K/mcL (0.00-0.30); Basophils % (Auto) 0.3 % (0.0-2.0); Eosinophils % (Auto) 1.9 % (0.0-7.0); Hematocrit 35.2 % (34.1-44.9); Hemoglobin 11.2 g/dL (11.2-15.7); Lymphocytes # (Auto) 2.54 K/mcL (1.50-4.80); Lymphocytes % (Auto) 23.8 % (15.5-49.0); Mean Cell Volume 92.4 fL (80.0-100.0); Mean Corpuscular HGB Conc 31.8 g/dL (31.0-36.0); Mean Platelet Volume 11.1 fL (8.8-12.5); Monocytes # (Auto) 1.01 K/mcL (0.10-0.90); Monocytes % (Auto) 9.4 % (1.0-12.0); Neutrophils % (Auto) 64.5 % (38.0-78.0); Platelet Count 161 K/mcL (140-440); Prothrombin Time 13.5 sec (11.9-14.5); RBC 3.81 M/mcL (3.59-5.38); Red Cell Distribution Width 12.7 % (11.5-14.5); WBC 10.7 K/mcL (4.5-11.0)
[2025-02-19 06:51] LABS: ALT/SGPT 16 U/L (<40); AST/SGOT 26 U/L (<32); Albumin 3.4 gm/dL (3.2-5.2); Albumin/Globulin Ratio 1.4 (1.0-2.3); Alkaline Phosphatase 61 U/L (39-117); Bilirubin,Direct < 0.2 mg/dL (0-0.3); Bilirubin,Total 0.3 mg/dL (0.1-1.0); Blood Urea Nitrogen 21 mg/dL (8-23); Calcium 9.2 mg/dL (8.6-10.4); Carbon Dioxide 24 mmol/L (22-30); Chloride 107 mmol/L (96-108); Globulin 2.5 gm/dL (2.2-3.7); Glomerular Filtration Rate 64; Glucose 164 mg/dL (70-105); Lactate Dehydrogenase 145 U/L (135-225); Phosphorous 3.3 mg/dL (2.5-4.5); Sodium 141 mmol/L (133-145); Triglycerides 108 mg/dL (<150)
[2025-02-19] MEDS ORDERED: PROPOFOL 200 MG/20 ML VIAL IV ONE (13:25)
[2025-02-19] MEDS ORDERED: KETAMINE 50 MG/ML ML ONE (13:26)
[2025-02-19] MEDS ORDERED: METOCLOPRAMIDE 10 MG/2 ML VIAL ONE (13:31)
[2025-02-19] MEDS ORDERED: ePHEDrine 50 MG/5 ML SYRINGE (ANEST) IV ONE (13:31)
[2025-02-19] MEDS: ceFAZolin 2 GM in DEXTROSE 5% IN WATER 50 ML IV SCH (15:16)
[2025-02-19] MEDS ORDERED: LIDOCAINE 2% PF 5 ML VIAL ONE (15:44)
[2025-02-19] MEDS ORDERED: TRANEXAMIC ACID 1,000 MG/10 ML VIAL ONE (15:44)
[2025-02-19] MEDS ORDERED: GLYCOPYRROLATE 0.2 MG/ML VIAL IV ONE (15:44)
[2025-02-19] MEDS ORDERED: ONDANSETRON 4 MG/2 ML VIAL ONE (15:44)
[2025-02-19] MEDS ORDERED: PHENYLephrine 1 MG/10 ML SYRINGE (ANEST) ONE (15:48)
[2025-02-19] MEDS ORDERED: diphenhydrAMINE 50 MG/ML VIAL IV PRN (16:03)
[2025-02-19] MEDS ORDERED: ONDANSETRON 4 MG/2 ML VIAL IV PRN (16:03)
[2025-02-19] MEDS ORDERED: MEPERIDINE 25 MG/ML VIAL IV PRN (16:03)
[2025-02-19] MEDS ORDERED: NALOXONE HCL 0.4 MG/ML VIAL IV PRN (16:03)
[2025-02-19] MEDS ORDERED: LACTATED RINGERS 250 ML IV PRN (16:03)
[2025-02-19] MEDS ORDERED: IPRATROPIUM/ALBUTEROL 3 ML AMPUL.NEB NEB PRN (16:03)
[2025-02-19] MEDS ORDERED: METHOCARBAMOL 750 MG TABLET PO PRN (16:19)
[2025-02-19] MEDS ORDERED: POLYETHYLENE GLYCOL 3350 17 GM PACKET PO PRN (16:19)
[2025-02-19] MEDS ORDERED: MAGNESIUM HYDROXIDE 30 ML ORAL.SUSP PO PRN (16:19)
[2025-02-19] MEDS ORDERED: BENZOCAINE/MENTHOL 1 LOZENGE PO PRN (16:19)
[2025-02-19] MEDS ORDERED: BISACODYL 10 MG SUPP.RECT PR PRN (16:19)
[2025-02-19] MEDS ORDERED: KETOROLAC 15 MG/ML VIAL IV PRN (16:19)
[2025-02-19] MEDS ORDERED: ONDANSETRON 4 MG ODT TABLET SL PRN (16:19)
[2025-02-19] MEDS ORDERED: ACETAMINOPHEN 325 MG TABLET PO PRN (16:19)
[2025-02-19] MEDS ORDERED: FLEETS ADULT 1 DOSE ENEMA PR PRN (16:19)
[2025-02-19] MEDS: METHOCARBAMOL 1,000 MG/10 ML VIAL IV PRN (17:47)
[2025-02-19] MEDS: fentaNYL 100 MCG/2 ML VIAL IV PRN (17:47)
[2025-02-19] MEDS: NALOXONE HCL 0.4 MG/ML VIAL IV PRN (20:32)
[2025-02-19] MEDS: NALOXONE HCL 0.4 MG/ML VIAL ONE (20:32)
[2025-02-19] MEDS: 0.9 % SODIUM CHLORIDE 1,000 ML IV SCH (20:40)
[2025-02-19] MEDS: SENNOSIDES 1 TABLET PO SCH (20:42)
[2025-02-19] MEDS: ASPIRIN 81 MG TAB.CHEW PO SCH (20:42)
[2025-02-19] MEDS: DOCUSATE SODIUM 100 MG CAPSULE PO SCH (21:02)
[2025-02-19 22:00] LABS: Appearance,Urine Clear (Clear); Bacteria,Urine Many /hpf (0); Bilirubin,Urine Negative (Negative); Color,Urine Yellow; Glucose,Urine (UA) Negative (Negative); Ketones,Urine Negative (Negative); Leukocyte Esterase,Urine Trace /uL (Negative); Nitrate,Urine Negative (Negative); PH,Urine 6.5 (5.0-9.0); Protein,Urine Negative (Negative); Specific Gravity,Urine 1.015 (1.000-1.035); Urine Blood Negative ery/mcL (Negative); Urine RBC 0 /hpf (0-3); Urine Squamous Epithelial Cell 0 /hpf (0-4); Urine WBC 30 /hpf (0-4); Urobilinogen,Urine Normal
[2025-02-19] MEDS: ceFAZolin 1 GM VIAL IV SCH (22:04)
[2025-02-20 06:15] LABS: Hematocrit 29.9 % (34.1-44.9); Hemoglobin 9.4 g/dL (11.2-15.7)
[2025-02-20] MEDS: LACTATED RINGERS 1,000 ML IV SCH (07:10)
[2025-02-20] MEDS ORDERED: METHOCARBAMOL 500 MG TABLET PO PRN (07:51)
[2025-02-20] MEDS ORDERED: FAMOTIDINE 20 MG TABLET PO PRN ×2 (08:14→08:15)
[2025-02-20] MEDS: METOPROLOL SUCCINATE 25 MG TAB.XL.24H PO SCH (08:56)
[2025-02-20] MEDS: Solifenacin 10 mg tablet PO SCH (09:07)
[2025-02-20] MEDS: ACETAMINOPHEN 650 MG/65 ML BAG IV SCH (16:26)
[2025-02-20] MEDS: SIMVASTATIN 20 MG TABLET PO SCH (20:53)
[2025-02-20] MEDS: oxyCODONE IR 5 MG TABLET PO PRN (20:53)
[2025-02-20] MEDS: traZODone HCL 100 MG TABLET PO SCH (20:56)
[2025-02-21] MEDS: TRAVOPROST OPHTH DROPS BOTTLE 2.5ML OU SCH (00:07)
[2025-02-21 06:17] LABS: Hematocrit 27.8 % (34.1-44.9); Hemoglobin 8.6 g/dL (11.2-15.7)
[2025-02-21] MEDS: morphine 4 MG/ML VIAL IV PRN (13:17)
[2025-02-22 05:47] LABS: Basophils # (Auto) 0.02 K/mcL (0.00-0.30); Basophils % (Auto) 0.2 % (0.0-2.0); Eosinophils # (Auto) 0.31 K/mcL (0.00-0.70); Eosinophils % (Auto) 2.7 % (0.0-7.0); Hematocrit 29.5 % (34.1-44.9); Hemoglobin 9.1 g/dL (11.2-15.7); Lymphocytes # (Auto) 2.12 K/mcL (1.50-4.80); Lymphocytes % (Auto) 18.6 % (15.5-49.0); Mean Cell Volume 93.9 fL (80.0-100.0); Mean Corpuscular HGB Conc 30.8 g/dL (31.0-36.0); Mean Platelet Volume 10.6 fL (8.8-12.5); Monocytes # (Auto) 0.92 K/mcL (0.10-0.90); Monocytes % (Auto) 8.1 % (1.0-12.0); Neutrophils % (Auto) 70.1 % (38.0-78.0); Platelet Count 156 K/mcL (140-440); RBC 3.14 M/mcL (3.59-5.38); WBC 11.4 K/mcL (4.5-11.0)
[2025-02-22] MEDS: CLOPIDOGREL 75 MG TABLET PO SCH (09:10)
[2025-02-22 11:52] VITALS: TEMP 98.4; O2SAT 98
== END 2025-02-22 14:05 | DRG 522 ==
LOC: ED 18:51 → MEDSUR 21:03
PROVIDERS: ADMIT Orthopaedic Surgery Sports Medicine; ATTEND Internal Medicine
PROC: HEMIHIP (2025-02-19 15:15)